=== PATIENT | male | born 1955 | race Caucasian/White ===

== ENCOUNTER 2018-01-15 05:18 | Emergency (ER) | payer OTHER ==
[2018-01-15 05:31] VITALS: BP 133/93; PULSE 81; TEMP 97.5; BMI 24.3
[2018-01-15] MEDS ORDERED: predniSONE 20 MG TABLET (UD) PO ONE (05:41)
[2018-01-15] MEDS ORDERED: diphenhydrAMINE HCL 50 MG CAPSULE PO ONE (05:41)
[2018-01-15] MEDS ORDERED: diphenhydrAMINE HCL 50 MG CAPSULE ONE (05:42)
[2018-01-15] MEDS ORDERED: predniSONE 20 MG TABLET (UD) ONE (05:43)
--- NOTE | 2018-01-15 05:52 | PDOC ---
History of Present Illness - General Chief Complaint: Hives Stated Complaint: HIVES History Source: Patient Exam Limitations: No Limitations - History of Present Illness Initial Comments: 01/15/18 05:52 This is a 62-year-old male who comes in complaining of hives. Patient has a history of hives in the past. Patient denies any shortness of breath or sensation that his throat or lips or swollen. Patient is not sure what he reacted to that thinks it may have been some cold chicken salad sandwich that he had. Patient otherwise denies any other complaints. Patient had some Benadryl at home that he took but he said it was old also he had an EpiPen in the past but he couldn't find it so did not take it PAST MEDICAL HISTORY: Hives PAST SURGICAL HISTORY: no significant history FAMILY HISTORY: no pertinant history SOCIAL HISTORY: Pt lives with family and is employed. MEDICATIONS: reviewed ALLERGIES: As per nursing notes Review of Systems General: No fevers or chills, no weakness, no weight loss HEENT: No change in vision. No sore throat,. No ear pain CardioVascular: No chest pain or shortness of breath Respiratory:No cough, or wheezing. Gastrointestinal: no nausea, vomitting, diarrhea or constipation, No rectal bleeding Genitourinary: No dysuria, hematuria, or frequency Musculoskeletal: No joint or muscle pain or swelling Neurologic: No headache, vertigo, dizziness or loss of consciousness Psychiatric: nor depression Skin: Hives Endocrine: no increased thirst or abnormal weight change Allergic: no skin or latex allergy All other systems reviewed and normal Exam: General: Well-nourished well-developed individual, no acute distress HEENT: Throat: Normal, tonsils normal, no erythema or exudate Neck: Supple, no meningeal signs, no lymphadenopathy Eyes::Pupils equal reactive and round, extraocular motion intact Chest: Nontender to palpation Cardiac: S1-S2 normal, regular rate and rhythm, no murmurs rubs or gallops Respiratory: Lungs clear to auscultation bilateral, there is no wheezing Extremities: Warm, dry, no cyanosis, clubbing, or edema, there are hives of the abdomen back and upper and lower extremities. Skin: Hives as per history of present illness Neuro: Alert and oriented x3, CN II - XII intact, nonfocal exam with normal strength, normal sensation, normal reflexes, normal gait, Psych: Normal mood and affect 01/15/18 06:32 Reevaluation: Patient feels much better post Benadryl and prednisone. Patient's hives have nearly resolved. Patient discharged home. Prescription for Medrol Dosepak [facility] Past History - Past Medical History Allergies/Adverse Reactions: Allergies Allergy/AdvReac Type Severity Reaction Status Date / Time No Known Drug Allergies Allergy Verified 11/12/14 14:13 Home Medications: Ambulatory Orders Naproxen Sodium [Aleve] 220 mg PO DAILY PRN 11/12/14 Sumatriptan Succ/Naproxen Sod [Treximet 85-500 mg Tablet] 1 each PO DAILY Topiramate [Topamax] 300 mg PO BID 11/12/14 Epinephrine [Epipen 2-Jessee] 0.3 mg IJ ASDIR #1 kit 01/15/18 Methylprednisolone [Medrol Dose Jessee] 4 mg PO ASDIR #21 tablet 01/15/18 Anemia: No Asthma: No Cancer: No Cardiac Disorders: No CVA: No COPD: No CHF: No Dementia: No Diabetes: No GI Disorders: No Disorders: No HTN: No Hypercholesterolemia: No Liver Disease: No Psychiatric Problems: Yes Seizures: No Thyroid Disease: No - Surgical History Abdominal Surgery: No Appendectomy: Yes (1968) Cardiac Surgery: No Cholecystectomy: No Lung Surgery: No Neurologic Surgery: No Orthopedic Surgery: Yes (RIGHT KNEE SCOPE 2003/LEFT KNEE SCOPE 2006/LEFT KNEE 2012) - Suicide/Smoking/Psychosocial Hx Smoking History: Former smoker Have you smoked in the past 12 months: Yes Number of Cigarettes Smoked Daily: 0 Cigars Per Day: 1 Information on smoking cessation initiated: No Hx Alcohol Use: Yes (2-3 WKLY) Drug/Substance Use Hx: No Substance Use Type: Alcohol Hx Substance Use Treatment: No *Physical Exam - Vital Signs Last Vital Signs Temp Pulse Resp BP Pulse Ox 97.5 F L 81 16 133/93 97 01/15/18 05:23 01/15/18 05:23 01/15/18 05:23 01/15/18 05:23 01/15/18 05:23 *DC/Admit/Observation/Transfer Diagnosis at time of Disposition: Hives - Discharge Dispostion Disposition: HOME Condition at time of disposition: Stable Admit: No - Prescriptions Prescriptions: Epinephrine [Epipen 2-Jessee] 0.3 mg IJ ASDIR #1 kit Methylprednisolone [Medrol Dose Jessee] 4 mg PO ASDIR #21 tablet - Referrals Referrals: Zuleyka Lees MD [Primary Care Provider] - - Patient Instructions Additional Instructions: Get the prescription filled for the EpiPen and a Medrol Dosepak. Save the EpiPen for if you ever develop swelling of your lips or throat in the future. Then use as directed. Otherwise if he just developed hives it's okay to take Benadryl 2 tablets. Get the prescription filled for the Medrol Dosepak and take the dosepak as prescribed. In addition to the dosepak if symptoms begin to return you can also take some Benadryl. Get a box of new Benadryl from the pharmacy when you get your prescriptions. Return to the emergency department immediately with ANY new, persistent or worsening symptoms. Continue any medications as previously prescribed by your physician. You should follow up with your primary doctor as soon as possible regarding today's emergency department visit. . Please make sure your doctor reviews the results of your emergency evaluation. Thank you for coming to the Emergency Department today for your care. It was a pleasure to see you today. Please note that your evaluation is INCOMPLETE until you follow-up with your doctor. - Post Discharge Activity
== END 2018-01-15 06:37 | disposition home or self-care (01) ==
LOC: FER 05:18
DX: L50.9 Urticaria, unspecified (principal); Z87.891 Personal history of nicotine dependence
CPT/HCPCS: 99281-25

== ENCOUNTER 2023-04-27 15:43 | Emergency (ER) | payer OTHER ==
[2023-04-27 16:04] VITALS: BP 146/91; PULSE 82; RESP 20; TEMP 98.9; BMI 23.2
[2023-04-27] MEDS ORDERED: DIPHTH,PERTUSS(ACELL),TET 0.5 ML DISP.SYRIN IM ONE ×2 (16:30→16:34)
== END 2023-04-27 16:38 | disposition home or self-care (01) ==
LOC: FER 15:43
PROC: 0HQFXZZ Repair Right Hand Skin, External Approach (ICD-10-PCS; principal; 2023-04-27)
PROC: 3E0234Z Introduction of Serum, Toxoid and Vaccine into Muscle, Percutaneous Approach (ICD-10-PCS; 2023-04-27)
DX: S61.212A Laceration without foreign body of right middle finger without damage to nail, initial encounter (principal); W25.XXXA Contact with sharp glass, initial encounter; Y28.0XXA Contact with sharp glass, undetermined intent, initial encounter; Y93.G1 Activity, food preparation and clean up; Y92.9 Unspecified place or not applicable
CPT/HCPCS: 12002-25; 90471; 90715; 99282-25

== ENCOUNTER 2023-05-07 06:57 | Emergency (ER) | payer OTHER ==
[2023-05-07 07:08] VITALS: BP 136/89; PULSE 98; RESP 16; TEMP 98; BMI 23.2
== END 2023-05-07 07:35 | disposition home or self-care (01) ==
LOC: FER 06:57
DX: Z48.02 Encounter for removal of sutures (principal); S61.312D Laceration without foreign body of right middle finger with damage to nail, subsequent encounter
CPT/HCPCS: 99281-25